=== PATIENT | female | born 1955 | race Two or more races ===

== ENCOUNTER → 2018-09-20 | Emergency (ER) | payer OTHER ==
[~2018-09-20] VITALS: Ht 157.5 cm; Wt 70.3 kg
[~2018-09-20] MED LIST: INDOCIN50 MG; LIPITOR20 MG; NEURONTIN300 MG; NORVASC10 MG
== END | disposition designated cancer center or children's hospital (05) ==
LOC: ER 03:58
DX: D35.4 Benign neoplasm of pineal gland (principal); R41.0 Disorientation, unspecified
CPT/HCPCS: 70552